=== PATIENT | female | born 1985 | race Caucasian/White ===

== ENCOUNTER 2017-07-14 23:39 | Emergency (ER) | payer MEDICAID ==
[~2017-07-14] VITALS: Ht 175.3 cm; Wt 76.8 kg
[~2017-07-14 23:39] MED LIST: BAC10T PO; ONDA4TAB59 PO
[2017-07-15 00:45] VITALS: BP 128/82
== END 2017-07-15 00:46 | disposition home or self-care (01) ==
LOC: ER 23:41
DX: E87.8 Other disorders of electrolyte and fluid balance, not elsewhere classified (principal); M62.838 Other muscle spasm; F41.9 Anxiety disorder, unspecified; G89.29 Other chronic pain; Z88.1 Allergy status to other antibiotic agents
CPT/HCPCS: 99281; 99284